=== PATIENT | male | born 1955 | race Two or more races ===

== ENCOUNTER 2019-04-09 09:00 | Inpatient (IN) | payer OTHER ==
[~2019-04-09] VITALS: Ht 175.3 cm; Wt 77.1 kg
[2019-04-09] MEDS ORDERED: ZESTRIL30 MG PO (13:07)
[2019-04-09] MEDS ORDERED: ELIQUIS5 MG PO (13:08)
[2019-04-09] MEDS ORDERED: CRESTOR5 MG PO (13:08)
[2019-04-09] MEDS ORDERED: PROTONIX40 MG PO (13:08)
[2019-04-09] MEDS ORDERED: ALLERGY REL5 MG/5 ML PO (13:09)
[2019-04-09] MEDS ORDERED: KAPSPARGO SPRIN25 MG PO (13:09)
[2019-04-09] MEDS ORDERED: ACID REDUCER20 M1 PO (13:09)
[2019-04-09] MEDS ORDERED: AMBIEN10 MG PO (13:10)
[2019-04-09] MEDS ORDERED: SYNTHROID125 MCG PO (13:10)
[2019-04-09] MEDS ORDERED: NORVASC10 MG (14:48)
[2019-04-19] MEDS ORDERED: PERCOCET 5-3251 EACH PO (13:09)
[2019-04-19] MEDS ORDERED: INTEGRA F CAPS1 EACH PO (13:09)
[2019-04-19] MEDS ORDERED: B-125000 MCG SL (13:09)
[2019-04-19] MEDS ORDERED: INTESTINEX680 M1 PO (13:09)
[2019-04-19] MEDS ORDERED: OMEPRAZOLE MAGN20 MG PO (13:10)
== END 2019-04-19 13:48 | disposition home or self-care (01) | DRG 330 ==
LOC: O/R 04-15 05:45 → SURG 04-15 05:45 → SURH 04-15 09:00 → SURG 04-15 11:28
PROVIDERS: ADMIT Surgery
PROC: 07BB4ZX Excision of Mesenteric Lymphatic, Percutaneous Endoscopic Approach, Diagnostic (ICD-10-PCS; 2019-04-15)
PROC: 0DBU4ZZ Excision of Omentum, Percutaneous Endoscopic Approach (ICD-10-PCS; 2019-04-15)
PROC: 4A12X4Z Monitoring of Cardiac Electrical Activity, External Approach (ICD-10-PCS; 2019-04-15)
PROC: 0DTF4ZZ Resection of Right Large Intestine, Percutaneous Endoscopic Approach (ICD-10-PCS; principal; 2019-04-15 10:30)
DX: C18.2 Malignant neoplasm of ascending colon (principal); D62 Acute posthemorrhagic anemia; K63.89 Other specified diseases of intestine; K66.8 Other specified disorders of peritoneum; E03.8 Other specified hypothyroidism; I11.9 Hypertensive heart disease without heart failure

== ENCOUNTER 2019-04-14 07:30 | Day surgery (SDC) | payer OTHER ==
[~2019-04-14 07:30] MED LIST: ACID REDUCER20 M1 PO; ALLERGY REL5 MG/5 ML PO; AMBIEN10 MG PO; CRESTOR5 MG PO; ELIQUIS5 MG PO; KAPSPARGO SPRIN25 MG PO; NORVASC10 MG; PROTONIX40 MG PO; SYNTHROID125 MCG PO; ZESTRIL30 MG PO
== END 2019-04-14 12:15 | disposition home or self-care (01) ==
LOC: AMB-ENDOS 07:30
DX: D12.2 Benign neoplasm of ascending colon (principal); D12.3 Benign neoplasm of transverse colon; K57.30 Diverticulosis of large intestine without perforation or abscess without bleeding

== ENCOUNTER 2019-11-17 12:56 | Inpatient (IN) | payer OTHER ==
[~2019-11-17] VITALS: Ht 175.3 cm; Wt 80.7 kg
[~2019-11-17 12:56] MED LIST changes: +B-125000 MCG SL; +INTEGRA F CAPS1 EACH PO; +INTESTINEX680 M1 PO; +OMEPRAZOLE MAGN20 MG PO; +PERCOCET 5-3251 EACH PO
[2019-11-19] MEDS ORDERED: INTESTINEX680 M1 PO (16:12)
== END 2019-11-19 17:23 | disposition home or self-care (01) | DRG 389 ==
LOC: ER 12:56 → SEC-K 21:33 → SURG 21:33
PROVIDERS: ADMIT Surgery; ATTEND Surgery
DX: K56.52 Intestinal adhesions [bands] with complete obstruction (principal); I48.20 Chronic atrial fibrillation, unspecified; E86.0 Dehydration; E03.9 Hypothyroidism, unspecified; I12.9 Hypertensive chronic kidney disease with stage 1 through stage 4 chronic kidney disease, or unspecified chronic kidney disease; N18.2 Chronic kidney disease, stage 2 (mild); E78.00 Pure hypercholesterolemia, unspecified; Z20.828 Contact with and (suspected) exposure to other viral communicable diseases

== ENCOUNTER 2024-08-13 23:48 | Emergency (ER) | payer OTHER ==
[~2024-08-13] VITALS: Ht 175.3 cm; Wt 78.5 kg
[~2024-08-13 23:48] MED LIST changes: +TAMS0.4C; +ZESTRIL30 MG; +[UNRECOGNIZED DRUG - OTHER]
[2024-08-14] MEDS ORDERED: GABAPENTIN800 M1 (00:11)
[2024-08-14] MEDS ORDERED: MULTAQ400 MG PO (00:12)
[2024-08-14] MEDS ORDERED: KETOROLAC TROMETHAMINE 30 MG VIAL IV STA (01:09)
[2024-08-14] MEDS ORDERED: SODIUM CHLORIDE 0.45 % 500 ML IV ONE (01:15)
[2024-08-14] MEDS ORDERED: KETOROLAC TROMETHAMINE 30 MG VIAL ONE (01:38)
[2024-08-14 02:03] LABS: HEMATOCRIT 37.4 % (39.0-48.0); HEMOGLOBIN 12.3 g/dL (13-16.00); MEAN CELL VOLUME 75.4 fL (80.0-100.00); MEAN CORPUSCULAR HEMOGLOBIN 24.9 pg (27.00-32.0); PLATELET COUNT 180 K/uL (150-450); RED BLOOD COUNT 4.95 M/uL (4.00-6.00); RED CELL DISTRIBUTION WIDTH 19.3 % (11.5-14.5)
[2024-08-14 02:20] LABS: ALBUMIN 3.4 gm/dL (3.4-5.0); BILIRUBIN TOTAL 0.77 mg/dL (0.3-1.2); CALCIUM 8.6 mg/dL (8.5-10.1); CREATININE SERUM 1.31 mg/dL (0.70-1.30); GFR 54.09; GLOBULINA 2.9 G/DL (2.4-3.5); POTASSIUM 3.78 mEq/L (3.5-5.1); TOTAL PROTEIN 6.3 gm/dL (6.4-8.2)
[2024-08-14 03:26] LABS: URINE APPEARANCE Clear; URINE BILIRRUBIN Negative (NEGATIVE); URINE BLOOD Negative; URINE COLOR Yellow; URINE GLUCOSE Negative (NEGATIVE); URINE KETONE Negative (NEGATIVE); URINE LEUKOCYTE Negative; URINE NITRATE Negative; URINE PROTEIN Trace (NEGATIVE)
[2024-08-14 03:30] LABS: URINE EPITHELIAL CELLS 2.9 uL (0.0-38.8); URINE WBC 2.5 uL (0.0-23.2)
[2024-08-14 03:37] LABS: URINE BACTERIA 3.6 uL (0.0-1933); URINE CAST 0.14 uL (0.0-1.40)
[2024-08-14 05:19] LABS: AMYLASE 251 U/L (25-115); LIPASE 444 U/L (13-75)
[2024-08-14] MEDS ORDERED: LEVSIN/SL0.125 MG SL (06:07)
== END 2024-08-14 06:29 ==
LOC: ER 23:49
PROVIDERS: General Practice
DX: R10.13 Epigastric pain (principal); R10.9 Unspecified abdominal pain; I10 Essential (primary) hypertension
CPT/HCPCS: 36415; 74022; 96365; 99283; J1885